=== PATIENT | female | born 1940 | race Caucasian/White ===

== ENCOUNTER 2016-10-29 16:58 | Outpatient (CLI) | payer MEDICARE, BC | END 2016-10-29 17:34 | LOC: D.MAMMO 16:58 | DX: N63 Unspecified lump in breast (principal) ==

== ENCOUNTER 2019-02-14 08:01 | Day surgery (SDC) | payer MEDICARE, BC ==
[~2019-02-14] VITALS: Ht 157.5 cm; Wt 41.7 kg
[~2019-02-14 08:01] MED LIST: ALBUTEROL SULF8.5 GM INH; ANORO ELLIPTA1 EACH INH; HYDROCODON-ACE1 EA10 PO; PRENAVITE1 TAB PO; ROPINIROLE HCL2 MG PO; TOVIAZ4 MG PO; TRELEGY ELLIPT1 EACH INH; TRINTELLIX5 MG PO
[2019-02-14 08:24] LABS: HEMATOCRIT 49.8 % (36.0-48.0); HEMOGLOBIN 16.6 g/dL (12-16); MCH 29.4 pg (26.0-34.0); MCHC 33.3 g/dL (31.0-37.0); MCV 88.1 fL (80.0-100.0); MEAN PLATELET VOLUME 9.6 fL (7.4-10.4); PLATELET COUNT 233 10x3/uL (130-400); RBC 5.65 10x6/uL (4.00-5.40); RDW 13.1 % (11.5-14.5); WBC 12.2 10x3/uL (4.8-10.8)
[2019-02-14 08:37] LABS: ANION GAP 7.5 mmol/L (8-16); CALCIUM 11.8 mg/dL (8.5-10.1); CARBON DIOXIDE 29.3 mmol/L (21.0-32.0); CREATININE - SERUM 0.9 mg/dL (0.6-1.3); POTASSIUM - SERUM 3.8 mmol/L (3.5-5.1)
[2019-02-14 08:57] LABS: LYMPHOCYTES 53 % (15-50); MONOCYTES 5 % (2-11); NEUTROPHILS 41 % (40-80); PLATELET ESTIMATE NORMAL
[2019-02-14 08:58] VITALS: BP 172/74; Ht 157.5 cm; Wt 41.7 kg
--- NOTE | 2019-02-14 09:11 | NUR ---
CALLED SHAFTING CLEANER FOR MH CONSULT. WILL COME WHEN PATIENT RETURNS FROM SURGERY.
[2019-02-14] MEDS ORDERED: PERCOCET 5-3251 TAB PO (10:19)
--- NOTE | 2019-02-14 11:46 | NUR ---
1125 SUPERVISIOR NOTIFIED OF PT'S RETURN TO 2507 FOR BEHAVIOR REFERRAL.
--- NOTE | 2019-02-14 12:04 | NUR ---
DR. GIBSON NOTIFIED AND REVIEWED PT'S BEHAVIOR AND ASSESSMENT RESULTS. PT IS A LOW RISK PER DR. GIBSON. DR. GIBSON STATED TO GIVE RESOURCES TO PT AT TIME OF DISCHARGE. NO FURTHER ORDERS AT THIS TIME. RESOURCES REVIEWED WITH PT AND SHE VERBALIZED UNDERSTANDING.
--- NOTE | 2019-02-14 14:18 | NUR ---
1335 DR. JOHNSON BEEPED DUE TO PT.'S CONTINUED ITCHING. Coral TownsendNAnahy 1350 DR[address] JOHNSON BEEPED AGAIN DUE TO PT.'S CONTINUED ITCHING. Coral HORTA R.N. 1400 DR. JOHNSON RETURNED CALL. REPORT OF ITCHING & PAIN. ORDERS RECEVIED FOR BENADRYL 25MG PO. PT GIVEN BENADRYL 25MG PO. CESAR Burrell
--- NOTE | 2019-02-14 15:33 | NUR ---
1420 REPORT RECEIVED FROM SAMUEL HORTA RN.
--- NOTE | 2019-03-02 13:49 | OP ---
PATIENT NAME: MELANIE DAMON MEDICAL RECORD: [id number] :44 LOCATION:D.OPS ADMISSION DATE: SURGEON: MAGUE JOHNSON MD DATE OF OPERATION: 02/14/2019 PREOPERATIVE DIAGNOSES: 1. Ventral hernia. 2. Chronic obstructive pulmonary disease. 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 POSTOPERATIVE DIAGNOSES: 1. Ventral hernia. 2. Chronic obstructive pulmonary disease. 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 PROCEDURES: 1. Diagnostic laparoscopy. 2. Ventral hernia repair. SURGEON: Mague Johnson MD REPORT OF PROCEDURE: The patient's abdomen was prepped and draped in sterile fashion. A Veress needle was inserted in the left upper quadrant and the abdomen was insufflated. A 5-mm Visiport trocar was inserted in the left lateral abdomen. Once inside, I could see the Veress needle and there was no sign of any injury to bowel or surrounding structures. Inspection of the abdomen showed there were some adhesions present in the midline of the mid abdomen, then extending up towards the epigastrium. This was mainly of omentum, but there appeared to be a little bit of bowel that was involved. As we moved towards the pelvis down past the umbilicus, there were no adhesions present, but there was a large deformity to the anterior abdominal wall. There was a piece of mesh that was present within the defect. The edges of the rectus muscles could be visualized and they were by approximately 7-8 cm. The mesh was present inside of these edges of the muscle and adherent to the undersurface of the subcutaneous fatty tissue of the skin of the lower abdomen. The patient was extremely thin and the sutures and edges of the mesh could be easily palpated externally. This appeared to be evidence of a large hernia, but due to how thin the patient was, it was difficult to make out many structures as they were so close to the skin themselves. The patient did have a hernia defect that was just to the right of the umbilicus. After we inspected the abdomen for a little while, the ports and insufflation were then removed. A transverse incision was made overlying the hernia defect just to the right of the umbilicus. Electrocautery was used to dissect through the subcutaneous tissues and down into the hernia sac. The hernia sac was freed up from the edges of the fascia and pushed back down into the abdominal cavity. The defect itself was about 1.5 cm in size transversely and about 1 cm long. We closed the fascial defect transversely using interrupted 0 Prolenes times 3. We irrigated out the wound and then infused a total of 10 mL of 0.25% Marcaine with epinephrine to all the tissues. The subcutaneous tissues were reapproximated with interrupted 3-0 Vicryl and the skin incisions were all closed with subcutaneous 5-0 Monocryl. COMPLICATIONS: None. CONDITION: Stable. OPERATIVE REPORT [id number] MELANIE DAMON ANESTHESIA: General endotracheal and local. BLOOD LOSS: Minimal. TRANSINT:[id number] Voice Confirmation ID: [id number] DOCUMENT ID: [id number] MAGUE JOHNSON MD at 1349 CC: GERSON BELL MD [id number] DICTATION DATE: 02/14/19 1024 SERVICE DESK MANAGER: 02/14/19 1122 [facility] 02/14/19 [address] [place] [address]
== END 2019-02-14 15:00 | disposition home or self-care (01) ==
LOC: D.OPS 08:01
PROVIDERS: ATTEND Surgery
DX: K43.9 Ventral hernia without obstruction or gangrene (principal); J44.9 Chronic obstructive pulmonary disease, unspecified; D68.1 Hereditary factor XI deficiency

== ENCOUNTER 2019-04-18 05:08 | Inpatient (IN) | payer MEDICARE, BC ==
[~2019-04-18] VITALS: Ht 157.5 cm; Wt 42.0 kg
[~2019-04-18 05:08] MED LIST changes: +PERCOCET 5-3251 TAB PO
[2019-04-18 06:10] LABS: HEMATOCRIT 50.5 % (36.0-48.0); HEMOGLOBIN 16.8 g/dL (12-16); MCH 29.5 pg (26.0-34.0); MCHC 33.3 g/dL (31.0-37.0); MCV 88.6 fL (80.0-100.0); MEAN PLATELET VOLUME 9.6 fL (7.4-10.4); RDW 13.5 % (11.5-14.5); WBC 14.4 10x3/uL (4.8-10.8)
[2019-04-18 06:20] LABS: PLATELET COUNT 280 10x3/uL (130-400)
[2019-04-18 06:39] LABS: CALCIUM 11.3 mg/dL (8.5-10.1); CARBON DIOXIDE 28.1 mmol/L (21.0-32.0); POTASSIUM - SERUM 4.1 mmol/L (3.5-5.1)
--- NOTE | 2019-04-18 07:01 | NUR ---
0655 REQUEST FOR BEHAVIORAL HEALTH [id number] CALLED IN TO [facility].
[2019-04-18 07:17] VITALS: BP 143/63; BMI 16.8
--- NOTE | 2019-04-18 07:29 | NUR ---
DR GIBSON NOTIFIED AND REVIEWED PATIENT'S BEHAVIOR AND ASSESSMENT RESULTS. PATIENT IS A LOW RISK. DR GIBSON STATED TO GIVE RESOURCES TO PATIENT. RESOURCES GIVEN AND REVIEWED WITH PATIENT AND SHE VERBALIZES UNDERSTANDING.
[2019-04-18 07:53] LABS: LYMPHOCYTES 63 % (15-50); MONOCYTES 8 % (2-11); NEUTROPHILS 29 % (40-80); PLATELET ESTIMATE NORMAL
--- NOTE | 2019-04-18 08:56 | NUR ---
0815 DR JOHNSON AT PTS BEDSIDE. AWARE THAT PT HAS REFUSED LOVENOX DUE TO A CLOTTING DEFICIT. DR JOHNSON MADE AWARE THAT PT HAS DRIVEN HERSELF TO [facility] AND HAS PLANS TO DRIVE HERSELF HOME AFTER DISCHARGE. DR JOHNSON TALKING TO PT REGARDING THIS MATTER. PT ASKING FOR PAIN MEDICATION. 0830 UNSUCCESSFUL IV ATTEMPTS X2 EARLIER. DR HU HERE AND AGREED TO START IV ON PT. 20G ANGIOCATH STARTED IN RIGHT HAND. 0845 PT ASKING FOR PAIN MEDICATION. STATES ABOMINAL PAIN IS A 10 OUT OF 10. WILL GIVE IV MORPHINE ORDERED. WILL BE RECORDED IN EMAR.
[2019-04-18 11:39] VITALS: BP 134/66
--- NOTE | 2019-04-18 11:52 | NUR ---
RECEIVED PATIENT FROM RECOVERY VIA BED ALERT AND ORIENTED. ACCOMPANIED BY STAFF. VITALS STABLE. C/O PAIN, GAVE NORCO 10 FOR PAIN, SCALE 8/10. NO S/S OF ACUTE DISTRESS NOTED. DENIES ANY NEEDS AT THIS TIME. CALL LIGHT IN REACH. WILL CONTINUE TO MONITOR.
--- NOTE | 2019-04-18 13:11 | NUR ---
I have reviewed this patient and I concur with the Shift Assessment completed by the Licensed Practical Nurse today this shift.
--- NOTE | 2019-04-18 13:36 | OP ---
PATIENT NAME: MELANIE DAMON MEDICAL RECORD: [id number] :44 LOCATION:D.MS [place].2222 ADMISSION DATE: SURGEON: MAGUE JOHNSON MD DATE OF OPERATION: 04/18/2019 PREOPERATIVE DIAGNOSES: 1. Recurrent ventral incisional hernia. 2. Chronic obstructive pulmonary disease. 3. Factor XI deficiency. POSTOPERATIVE DIAGNOSES: 1. Recurrent ventral incisional hernia. 2. Chronic obstructive pulmonary disease. 3. Factor XI deficiency. PROCEDURE: 1. Extraction of old mesh. 2. Ventral hernia repair with 13.7 x 17.[address] mesh. SURGEON: Mague Johnson MD REPORT OF PROCEDURE: The patient's abdomen was prepped and draped in sterile fashion. A cutdown was made in the lower midline. Electrocautery was used to dissect through the subcutaneous tissues. The patient's previous hernia mesh was lying just underneath the fatty tissue and we went ahead and elevated the fatty tissue off of this until we got all the way around the mesh. The mesh appeared to be adherent to the medial aspects of the patient's midline fascia. The mesh was completely excised and we are in the abdominal cavity at this point. Once inside the abdomen, we freed up some adhesions that were present of the omentum to the anterior abdominal wall. We measured out the hernia defect and it was a little over 12 cm in length. We freed up the fascial edges and cleaned up any weak appearing tissue. The muscle itself appeared to be viable and we elected to perform an underlay mesh repair. The Ventralex ST mesh was inserted in an underlay fashion and sutured down on all sides using multiple interrupted 0 Prolenes. The mesh appeared to rest in good position with no tension. We irrigated out the wound and assured there was no sign of any bleeding. The fascia was then closed in the midline overlying the mesh using running 0 Vicryls. We then irrigated out the wound one last time. The subcutaneous tissues were reapproximated with interrupted 3-0 Vicryl and the patient's umbilicus was tacked back down to the fascia using a single interrupted 3-0 Vicryl. The skin incision was then closed with wyatt and dressed appropriately. COMPLICATIONS: None. CONDITION: Stable. ANESTHESIA: General endotracheal and local. BLOOD LOSS: Minimal. TRANSINT:[id number] Voice Confirmation ID: [id number] DOCUMENT ID: [id number] OPERATIVE REPORT [id number] MELANIE DAMON CHRISTIAN MD at 1336 CC: [id number] DICTATION DATE: 04/18/19 1103 DRY CELL SEALER: 04/18/19 1122 [facility] [address] [id number]
[2019-04-18 14:15] VITALS: BP 134/66; BMI 16.9
[2019-04-18 16:43] VITALS: BP 116/47
--- NOTE | 2019-04-18 17:56 | NUR ---
ALERT AND ORIENTED, SITTING UP IN BED EATING SUPPER. NO C/O PAIN. NO S/S OF ACUTE DISTRESS NOTED. DENIES ANY NEEDS AT THIS TIME. CALL LIGHT IN REACH. WILL CONTINUE TO MONITOR.
--- NOTE | 2019-04-18 20:00 | NUR ---
ASSESSMENT PER FLOWSHEET. SALINE LOCK TO RT HAND.INCISION TO ABDOMEN C/D/I. UP WITH HELP TO BSC VOIDS FREELY ASSISTED BACK TO BED.
--- NOTE | 2019-04-18 20:32 | NUR ---
I have reviewed this patient and I concur with the Shift Assessment completed by the Licensed Practical Nurse today this shift.
[2019-04-18 20:45] VITALS: BP 149/71
--- NOTE | 2019-04-18 21:18 | NUR ---
C/O PAIN INCISIONAL AREA NORCO 10 TAB ONE PO GIVEN FOR PAIN CONTROL.
--- NOTE | 2019-04-19 | NUR ---
UP TO BR VOIDS ASSISTED BACK TO BED SR UP X2 CALL LIGHT WITHIN REACH.
[2019-04-19 01:21] VITALS: BP 111/52
--- NOTE | 2019-04-19 02:12 | NUR ---
C/O PAIN INCISIONAL AREA RATES PAIN #10. MORPHINE 2 MG IVP GIVEN FOR PAIN CONTROL.
--- NOTE | 2019-04-19 03:22 | NUR ---
EYES CLOSED RESPIRATIONS WITH EASE AND UNLABORED.
[2019-04-19 04:57] LABS: ANION GAP 6.6 mmol/L (8-16); CALCIUM 10.4 mg/dL (8.5-10.1); CARBON DIOXIDE 30.7 mmol/L (21.0-32.0); CREATININE - SERUM 1.1 mg/dL (0.6-1.3); POTASSIUM - SERUM 4.3 mmol/L (3.5-5.1)
[2019-04-19 05:06] VITALS: BP 140/61
[2019-04-19 05:18] LABS: BASOPHILS 0.1 % (0-2); HEMATOCRIT 41.9 % (36.0-48.0); HEMOGLOBIN 13.5 g/dL (12-16); IMMATURE GRANULOCYTES 0.3 % (0-5); LYMPHOCYTES 57.2 % (15-50); MCH 29.2 pg (26.0-34.0); MCHC 32.2 g/dL (31.0-37.0); MEAN PLATELET VOLUME 9.1 fL (7.4-10.4); MONOCYTES 4.7 % (2-11); NEUTROPHILS 36.7 % (40-80); PLATELET COUNT 239 10x3/uL (130-400); RBC 4.62 10x6/uL (4.00-5.40); RDW 13.6 % (11.5-14.5); WBC 11.4 10x3/uL (4.8-10.8)
[2019-04-19 05:30] LABS: MCV 90.7 fL (80.0-100.0)
[2019-04-19 08:20] VITALS: BP 123/57
--- NOTE | 2019-04-19 10:08 | NUR ---
PATIENT IS POST OP DAY 1 FOLLOWING VENTRAL HERNIA REPAIR. DRESSING TO MIDLINE INTACT. PAIN RELIEVED AT THIS TIME FOLLOWING MORPHINE AND LATER PERCOCET GIVEN. PATIENT TOLERATING REGULAR DIET WELL
[2019-04-19 13:41] VITALS: BP 133/73
[2019-04-19 17:14] VITALS: BP 132/73
[2019-04-19 19:30] VITALS: BP 110/40
--- NOTE | 2019-04-19 20:00 | NUR ---
UP AMBULATING IN HALLWAY, BACK TO ROOM AND TO BED, REQUESTING PAIN MEDICATION, PEROCET GIVEN ORDERED, SEE SHIFT ASSESSMENT, MIDLINE ABD DRESSING DRY AND INTACT WITH ABD BINDER IN USE, CALL LIGHT IN REACH ENCOURAGED TO CALL BEFORE GETTING UP
[2019-04-20 00:30] VITALS: BP 108/42
[2019-04-20 05:00] VITALS: BP 105/46
[2019-04-20] MEDS ORDERED: PERCOCET 10-321 EAC1 PO (07:52)
[2019-04-20] MEDS ORDERED: CYCLOBENZAPRINE10 MG PO (07:52)
--- NOTE | 2019-04-20 08:00 | NUR ---
Spoke with Dr. Augustin about increased heart rate and decreased blood pressure. Also informed patient was on 5 liters NC oxygen. She does not have any lab work ordered for this am. He states she is being discharged and that she has oxygen at home. No new orders at this time. Also discussed with patient's bedside nurse, Richa.
[2019-04-20 09:21] VITALS: BP 115/39
--- NOTE | 2019-04-20 12:20 | MORECARE ---
CASE MANAGEMENT DISCHARGE SUMMARY PATIENT: MELANIE DAMON UNIT: [id number] ADM DATE: 04/19/19 AGE: 78 : 42 SEX: F ROOM/BED: D.2222 AUTHOR: RASHIDA MITCHELL PHYSICIAN: REFERRING PHYSICIAN: MAGUE JOHNSON MD DATE OF SERVICE: 04/20/19 Discharge Plan Patient Name: MELANIE DAMON Facility: [facility]:[place] : 1940 Planned Disposition: Home Anticipated Discharge Date: 04/21/19 Discharge Date: Expected LOS: 2 Initial Reviewer: [email or web address] Initial Review Date: 04/20/2019 Generated: 04/20/19 1:19 pm DCPIA - Discharge Planning Initial Assessment Updated by [email or web address]: Dalila Carreon on 04/20/19 12:19 pm * Is the patient Alert and Oriented? Yes * How many steps to enter\exit or inside your home? Ramp/0 * PCP Dr. Goodman in [place] * Pharmacy [facility] * Preadmission Environment Home Alone * ADLs Independent * Equipment Nebulizer Other Oxygen Walker * Other Equipment Portable oxygen Trilogy * List name and contact numbers for known caregivers / representatives who currently or will assist patient after discharge: Beth Vital - [phone] * Verbal permission to speak to the caregivers and representatives has been obtained from the patient. Yes * Community resources currently utilized None * Additional services required to return to the preadmission environment? No * Can the patient safely return to the preadmission environment? Yes * Has this patient been hospitalized within the prior 30 days at any hospital? No Coverage Notice Reviewer: [id number] Twyla Vora Notice Issued Date-Time: 04/19/2019 19:10 Notice Type: Medicare Outpatient Observation Notice Notice Delivered To: Patient Relationship to Patient: Self Hydrate Control Tender Name: Melanie Reed Delivery Method: HAND - Hand Delivered Days: Prior Verbal Notification: Recipient Understood Notice: Recipient Signature: Yes Med Rec Note Co-signed by Attending: Coverage Notice Comment: THRASHER delivered to and signed by patient. Original given to patient and placed on chart. Patient Name: MELANIE DAMON Page [phone] at 1220 All edits/amendments must be made on the electronic document DICTATION DATE: 04/20/191218 RN NEONATAL: KAY 04/20/191218 RPT#: [id number] DC DATE: STATUS: ADM IN [facility] [address] [place] [address] END OF REPORT
--- NOTE | 2019-04-20 12:27 | MORECARE ---
CASE MANAGEMENT DISCHARGE SUMMARY PATIENT: MELANIE DAMON UNIT: [id number] ADM DATE: 04/19/19 AGE: 78 : 42 SEX: F ROOM/BED: D.2222 AUTHOR: RASHIDA MITCHELL PHYSICIAN: REFERRING PHYSICIAN: MAGUE JOHNSON MD DATE OF SERVICE: 04/20/19 Discharge Plan Patient Name: MELANIE DAMON Facility: [facility]:[place] : 1940 Planned Disposition: Home Anticipated Discharge Date: 04/21/19 Discharge Date: Expected LOS: 2 Initial Reviewer: [email or web address] Initial Review Date: 04/20/2019 Generated: 04/20/19 1:27 pm Comments DCP- Discharge Planning Updated by [email or web address]: Dalila Carreon on 04/20/19 11:[address] Patient Name: MELANIE DAMON Admission Status: Elective Accout number: [id number] Admission Date: 04-19-2019 : 1940 Admission Diagnosis: Attending: MAGUE JOHNSON Current LOS: 1 Anticipated DC Date: 04-21-2019 Planned Disposition: Home Primary Insurance: MEDICARE A & B Discharge Planning Comments: CM met with patient to complete initial dc planning assessment. CM educated patient on the CM role and verbal consent given by patient to complete assessment. Patient lives at home alone. At discharge patient plans to return and feels this is a safe discharge. CM discussed availability of home health, rehab services, and medical equipment. Patient denied known discharge needs at this time. She states that she has her car in the parking lot and her portable oxygen and her nebulizer are in the car. She also states she cannot get ahold of her friends to pick her up today. RT has attempted to decrease her oxygen back to home flow of 2 liters without success and have had to increase it back to 4l NC for oxygen saturation of 90%. Richa has notified Dr. Cristina and he has held discharge for today. I have asked patient to arrange transportation for tomorrow. CM will continue to follow and will assist as needed with dc plans/needs. Corporate Security Officer: Dalila Carreon DCPIA - Discharge Planning Initial Assessment Updated by [email or web address]: Dalila Carreon on 04/20/19 12:19 pm * Is the patient Alert and Oriented? Yes * How many steps to enter\exit or inside your home? Ramp/0 * PCP Dr. Goodman in [place] * Pharmacy [facility] * Preadmission Environment Home Alone * ADLs Independent * Equipment Nebulizer Other Oxygen Walker * Other Equipment Portable oxygen Trilogy * List name and contact numbers for known caregivers / representatives who currently or will assist patient after discharge: Beth Vital [phone] * Verbal permission to speak to the caregivers and representatives has been obtained from the patient. Yes * Community resources currently utilized None * Additional services required to return to the preadmission environment? No * Can the patient safely return to the preadmission environment? Yes * Has this patient been hospitalized within the prior 30 days at any hospital? No Coverage Notice Reviewer: [id number] Twyla Vora Notice Issued Date-Time: 04/19/2019 19:10 Notice Type: Medicare Outpatient Observation Notice Notice Delivered To: Patient Relationship to Patient: Self Kosher Dietary Service Manager Name: Melanie Reed Delivery Method: HAND - Hand Delivered Days: Prior Verbal Notification: Recipient Understood Notice: Recipient Signature: Yes Med Rec Note Co-signed by Attending: Coverage Notice Comment: THRASHER delivered to and signed by patient. Original given to patient and placed on chart. Last DP export: 04/20/19 11:19 Patient Name: MELANIE DAMON Page [phone] at 1227 All edits/amendments must be made on the electronic document DICTATION DATE: 04/20/191226 FIBERGLASS ROVING WINDER: KAY 04/20/19 1227 RPT#: [id number] DC DATE: STATUS: ADM IN [facility] [address] [place] [address] END OF REPORT
[2019-04-20 12:54] VITALS: BP 109/40
[2019-04-20 14:11] VITALS: Ht 157.5 cm; Wt 42.0 kg
[2019-04-20 17:28] VITALS: BP 122/45
--- NOTE | 2019-04-20 17:54 | NUR ---
HAS BEEN UP TO CHAIR AND UP SOME TODAY.PT HAS BEEN INSTRUCTED SHE WILL DC HOME IN AM AND WILL NEED TRANSPORT HOME.SHE IS WITHOUT CHANGE.CONT PLAN OF CARE
[2019-04-20 20:00] VITALS: BP 120/51
--- NOTE | 2019-04-20 20:00 | NUR ---
PT SITTING UP IN BED WITHOUT DISTRESS, AOX4. IV RIGHT HAND SL. O2 4L/NC. ML INCISION TO ABD CDI. USING INCENTIVE SPIROMETER AT BEDSIDE. STATES SHE HAS NOT HAD BM YET. EDUCATED ON SENOKOT AND MILK OF MAG. STATES SHE HAS FRIENDS DRIVING IN FROM [place] IN AM TO TAKE HER BACK TO [place] UPON DISCHARGE. DENIES CURRENT NEEDS. CL IN REACH, WILL CTM
[2019-04-21] VITALS: BP 115/44
--- NOTE | 2019-04-21 00:10 | NUR ---
PT STATES PAIN IN ABD 10/10, REQUESTED AND GIVEN PERCOCET. DENIES OTHER NEEDS, CL IN REACH, WILL CTM
[2019-04-21 04:00] VITALS: BP 125/63
[2019-04-21 04:49] LABS: BASOPHILS 0.1 % (0-2); EOSINOPHILS 1.9 % (0-7); HEMATOCRIT 37.3 % (36.0-48.0); IMMATURE GRANULOCYTES 0.3 % (0-5); LYMPHOCYTES 50.8 % (15-50); MCHC 32.2 g/dL (31.0-37.0); MCV 90.1 fL (80.0-100.0); MEAN PLATELET VOLUME 9.2 fL (7.4-10.4); MONOCYTES 6.3 % (2-11); NEUTROPHILS 40.6 % (40-80); PLATELET COUNT 196 10x3/uL (130-400); RBC 4.14 10x6/uL (4.00-5.40); RDW 13.4 % (11.5-14.5); WBC 10.9 10x3/uL (4.8-10.8)
[2019-04-21 05:25] LABS: ANION GAP 6.1 mmol/L (8-16); CALCIUM 10.6 mg/dL (8.5-10.1); CARBON DIOXIDE 32.2 mmol/L (21.0-32.0); CREATININE - SERUM 1.1 mg/dL (0.6-1.3); POTASSIUM - SERUM 4.3 mmol/L (3.5-5.1)
--- NOTE | 2019-04-21 07:14 | NUR ---
LYING IN BED,WITHOUT SIGNS OF DISTRESS.REQUESTING PAIN PILL WHEN TIME. PT STATES RIDE COMING FROM [place] FOR TRANSPORT HOME TODAY.CALL LIGHT IN REACH
[2019-04-21 08:02] VITALS: BP 132/61
--- NOTE | 2019-04-23 14:06 | MORECARE ---
CASE MANAGEMENT DISCHARGE SUMMARY PATIENT: MELANIE DAMON UNIT: [id number] ADM DATE: 04/19/19 AGE: 78 : 42 SEX: F ROOM/BED: D.2222 AUTHOR: RASHIDA MITCHELL PHYSICIAN: REFERRING PHYSICIAN: MAGUE JOHNSON MD DATE OF SERVICE: 04/23/19 Discharge Plan Patient Name: MELANIE DAMON Facility: [facility]:[place] : 1940 Planned Disposition: Home Anticipated Discharge Date: 04/21/19 Discharge Date: 04/21/2019 Expected LOS: 2 Initial Reviewer: [email or web address] Initial Review Date: 04/20/2019 Generated: 04/23/19 3:06 pm Comments DCP- Discharge Planning Updated by [email or web address]: Dalila Carreon on 04/20/19 11:[address] Patient Name: MELANIE DAMON Admission Status: Elective Accout number: [id number] Admission Date: 04-19-2019 : 1940 Admission Diagnosis: Attending: MAGUE JOHNSON Current LOS: 1 Anticipated DC Date: 04-21-2019 Planned Disposition: Home Primary Insurance: MEDICARE A & B Discharge Planning Comments: CM met with patient to complete initial dc planning assessment. CM educated patient on the CM role and verbal consent given by patient to complete assessment. Patient lives at home alone. At discharge patient plans to return and feels this is a safe discharge. CM discussed availability of home health, rehab services, and medical equipment. Patient denied known discharge needs at this time. She states that she has her car in the parking lot and her portable oxygen and her nebulizer are in the car. She also states she cannot get ahold of her friends to pick her up today. RT has attempted to decrease her oxygen back to home flow of 2 liters without success and have had to increase it back to 4l NC for oxygen saturation of 90%. Richa has notified Dr. Cristina and he has held discharge for today. I have asked patient to arrange transportation for tomorrow. CM will continue to follow and will assist as needed with dc plans/needs. Sciences Dean: Dalila Carreon DCPIA - Discharge Planning Initial Assessment Updated by [id number]: Dalila Carreon on 04/20/19 12:19 pm * Is the patient Alert and Oriented? Yes * How many steps to enter\exit or inside your home? Ramp/0 * PCP Dr. Goodman in [place] * Pharmacy [facility] * Preadmission Environment Home Alone * ADLs Independent * Equipment Nebulizer Other Oxygen Walker * Other Equipment Portable oxygen Trilogy * List name and contact numbers for known caregivers / representatives who currently or will assist patient after discharge: Beth Vital - [phone] * Verbal permission to speak to the caregivers and representatives has been obtained from the patient. Yes * Community resources currently utilized None * Additional services required to return to the preadmission environment? No * Can the patient safely return to the preadmission environment? Yes * Has this patient been hospitalized within the prior 30 days at any hospital? No Coverage Notice Reviewer: [id number] Twyla Vora Notice Issued Date-Time: 04/19/2019 19:10 Notice Type: Medicare Outpatient Observation Notice Notice Delivered To: Patient Relationship to Patient: Self Skin Installer Name: Melanie Reed Delivery Method: HAND - Hand Delivered Days: Prior Verbal Notification: Recipient Understood Notice: Recipient Signature: Yes Med Rec Note Co-signed by Attending: Coverage Notice Comment: THRASHER delivered to and signed by patient. Original given to patient and placed on chart. Last DP export: 04/20/19 11:27 Patient Name: MELANIE DAMON Page [phone] at 1406 All edits/amendments must be made on the electronic document DICTATION DATE: 04/23/19 1406 PLISSE MACHINE OPERATOR HELPER: KAY 04/23/19 1406 RPT#: [id number] DC DATE:04/21/19 STATUS: DIS IN [facility] [address] [place] [address] END OF REPORT
== END 2019-04-21 11:04 | disposition home or self-care (01) | DRG 354 ==
LOC: D.OPS 05:08 → D.MS 05:08 → D.OPS 08:45 → D.PAN 08:45 → D.MS 11:11 → D.OPS 04-19 19:14 → D.MS 04-19 19:15
PROVIDERS: Surgery; ADMIT Surgery; ATTEND Surgery
PROC: 0WUF0JZ Supplement Abdominal Wall with Synthetic Substitute, Open Approach (ICD-10-PCS; principal; 2019-04-18 08:45)
DX: K43.2 Incisional hernia without obstruction or gangrene (principal); D68.1 Hereditary factor XI deficiency; J44.9 Chronic obstructive pulmonary disease, unspecified

== ENCOUNTER 2019-04-22 19:42 | Inpatient (IN) | payer MEDICARE, BC ==
[~2019-04-22] VITALS: Ht 157.5 cm; Wt 41.7 kg
[~2019-04-22 19:42] MED LIST changes: +CYCLOBENZAPRINE10 MG PO; +PERCOCET 10-321 EAC1 PO
--- NOTE | 2019-04-22 20:20 | NUR ---
PT ASSISTED TO BEDSIDE COMMODE. URINE SPECIMEN SENT TO LAB.
[2019-04-22 20:29] LABS: BASOPHILS 0.1 % (0-2); EOSINOPHILS 0 % (0-7); HEMATOCRIT 38.8 % (36.0-48.0); HEMOGLOBIN 12.4 g/dL (12-16); IMMATURE GRANULOCYTES 0.2 % (0-5); MCH 29.2 pg (26.0-34.0); MCV 91.3 fL (80.0-100.0); MEAN PLATELET VOLUME 9.2 fL (7.4-10.4); MONOCYTES 0.8 % (2-11); NEUTROPHILS 87.9 % (40-80); RBC 4.25 10x6/uL (4.00-5.40); RDW 13.7 % (11.5-14.5)
[2019-04-22 20:30] LABS: PLATELET COUNT 250 10x3/uL (130-400)
--- NOTE | 2019-04-22 20:30 | NUR ---
DRESSING REMOVED BY EDP. NEW DRESSING APPLIED TO SITE.
[2019-04-22 20:32] LABS: APPEARANCE CLEAR (CLEAR); BILIRUBIN NEGATIVE (NEGATIVE); COLOR YELLOW (YELLOW); GLUCOSE NEGATIVE (NEGATIVE); KETONE MODERATE mg/dL (NEGATIVE); NITRITE NEGATIVE (NEGATIVE); PROTEIN TRACE mg/dL (NEGATIVE); UROBILINOGEN NORMAL (NORMAL)
[2019-04-22 20:34] LABS: BACTERIA FEW /hpf (NEGATIVE); EPITHELIAL CELLS 0-5 /hpf (0-5); RED CELLS - URINE 0-5 /hpf (0-5); WHITE CELLS - URINE 0-5 /hpf (NEGATIVE)
[2019-04-22 20:39] LABS: ANION GAP 12.5 mmol/L (8-16); CALCIUM 10.8 mg/dL (8.5-10.1); CARBON DIOXIDE 26.2 mmol/L (21.0-32.0); CREATININE - SERUM 0.9 mg/dL (0.6-1.3); POTASSIUM - SERUM 4.7 mmol/L (3.5-5.1)
[2019-04-22 20:47] LABS: ALBUMIN 2.8 g/dL (3.4-5.0); BILIRUBIN - TOTAL 0.57 mg/dL (0.2-1.3)
--- NOTE | 2019-04-22 21:35 | NUR ---
LEVAQUIN INFUSING. PT PROVIDED SANDWICH BOX PER REQUEST.
--- NOTE | 2019-04-22 22:13 | NUR ---
PT ARRIVED ON UNIT VIA WHEELCHAIR ESCORTED BY ER NURSE. POSITIONED PT IN BED; ACTIVATED BED ALARM; AND ORIENTED TO ROOM AND CALL LIGHT. IV LEVAQUIN FINISHING NOW.
--- NOTE | 2019-04-22 22:30 | NUR ---
GAVE DEMERAL 50 MG IVP PER REQUEST FOR SEVERE PAIN AT LEVEL 9/10. WILL MONITOR FOR EFFECTIVENESS.
[2019-04-22 22:43] VITALS: BP 120/41; BMI 16.8
--- NOTE | 2019-04-22 23:29 | NUR ---
DR GIBSON NOTIFIED AND REVIEWED PT'S BEHAVIOR AND ASSESSMENT RESULTS. PT IS A LOW RISK PER DR GIBSON. DR GIBSON STATED TO GIVE RESOURCES TO PT AT TIME OF DISCHARGE. NO FURTHER ORDERS AT THIS TIME. RESOURCES REVIEWED WITH PT AND SHE VERBALIZED UNDERSTANDING,
[2019-04-23 00:21] VITALS: BP 120/48
--- NOTE | 2019-04-23 00:22 | NUR ---
ADMISSION ASSESSMENT AND HISTORY COMPLETE. MED REC REVIEWED.
[2019-04-23 04:00] VITALS: BP 118/46
--- NOTE | 2019-04-23 07:32 | NUR ---
ALERT AND ORIENTED. LUNGS DIMINISHED BILATERALLY. HEART SOUNDS S1 AND S2 HEARD IN ALL HECK. BOWEL SOUNDS HYPOACTIVE X 4. MEPILEX TO MIDLINE ABD INCISION C/D/I. BRUISING TO ABDOMEN AND BACK. IV TO RFA PATENT WITHOUT REDNESS. O2 IN PLACE VIA NC AT 4L. DENIES NEEDS. BED LOW. FALLPRECAUTIONS IN PLACE. CALL ALVAREZ AND PERSONAL ITEMS IN REACH. WILL CONTINUE TO MONITOR.
[2019-04-23 07:43] VITALS: BP 127/55
--- NOTE | 2019-04-23 10:14 | NUR ---
SITTING IN BED. DRINKING MAG CITRATE. DENIES NEEDS. WILL CONTINUE TO MONITOR.
--- NOTE | 2019-04-23 12:01 | NUR ---
ASSISTED PATIENT TO CHANGE GOWNS AFTER COVERSTITCH MACHINE OPERATOR GAVE BATH. PATIENT GIVEN TOOTHBRUSH AND MOUTHWASH AND HAIRBRUSH PER REQUEST. DENIES FURTHER NEEDS. WILL CONTINUE TO MONITOR.
[2019-04-23 12:47] LABS: BASOPHILS 0.1 % (0-2); EOSINOPHILS 0 % (0-7); HEMATOCRIT 36.8 % (36.0-48.0); HEMOGLOBIN 11.7 g/dL (12-16); IMMATURE GRANULOCYTES 0.3 % (0-5); LYMPHOCYTES 13.7 % (15-50); MCH 29.1 pg (26.0-34.0); MCHC 31.8 g/dL (31.0-37.0); MCV 91.5 fL (80.0-100.0); MEAN PLATELET VOLUME 9.2 fL (7.4-10.4); MONOCYTES 6.1 % (2-11); NEUTROPHILS 79.8 % (40-80); PLATELET COUNT 283 10x3/uL (130-400); RBC 4.02 10x6/uL (4.00-5.40); RDW 13.5 % (11.5-14.5)
[2019-04-23 12:48] VITALS: BP 127/50
[2019-04-23 12:49] LABS: WBC 14.3 10x3/uL (4.8-10.8)
[2019-04-23 13:01] LABS: ALBUMIN 2.8 g/dL (3.4-5.0); ANION GAP 11.8 mmol/L (8-16); BILIRUBIN - TOTAL 0.38 mg/dL (0.2-1.3); CALCIUM 10.9 mg/dL (8.5-10.1); CARBON DIOXIDE 22.1 mmol/L (21.0-32.0); POTASSIUM - SERUM 4.9 mmol/L (3.5-5.1); PROTEIN - SERUM 6.8 g/dL (6.4-8.2)
[2019-04-23 13:03] LABS: CREATININE - SERUM 1.2 mg/dL (0.6-1.3)
--- NOTE | 2019-04-23 13:15 | NUR ---
ASSISTED TO BSC. CALL LIGHT IN REACH. INSTRUCTED TO CALL FOR HELP WHEN DONE. VERBALIZED UNDERSTANDING.
--- NOTE | 2019-04-23 15:15 | NUR ---
TELEMETRY PLACED ON PATIENT PER ORDER. SMALL BOWEL MOVEMENT NOTED TO BSC.
--- NOTE | 2019-04-23 16:46 | NUR ---
RESTING IN BED. DENIES NEEDS. WILL CONTINUE TO MONITOR.
[2019-04-23 16:47] VITALS: BP 118/56
--- NOTE | 2019-04-23 18:04 | NUR ---
RESTING IN BED. DENIES NEEDS. BED LOW. FALL PRECAUTIONS IN PLACE. CALL ALVAREZ AND PERSONAL ITEMS IN REACH.
[2019-04-23 20:11] VITALS: BP 134/66
[2019-04-24 00:15] VITALS: BP 108/65
--- NOTE | 2019-04-24 02:02 | NUR ---
NO S/S OF DISTRESS CALL LIGHT IN REACH, NO VPICED NEEDS OR WANTS TO STAFF. RESP. EVEN NAD UNLABORED CALL LIGHT IN REACH.
[2019-04-24 04:31] VITALS: BP 103/50
[2019-04-24 05:59] LABS: BASOPHILS 0 % (0-2); EOSINOPHILS 0 % (0-7); HEMATOCRIT 37.5 % (36.0-48.0); HEMOGLOBIN 11.5 g/dL (12-16); IMMATURE GRANULOCYTES 0.2 % (0-5); LYMPHOCYTES 8.1 % (15-50); MCH 28.5 pg (26.0-34.0); MCHC 30.7 g/dL (31.0-37.0); MCV 93.1 fL (80.0-100.0); MEAN PLATELET VOLUME 9.6 fL (7.4-10.4); MONOCYTES 2.5 % (2-11); NEUTROPHILS 89.2 % (40-80); PLATELET COUNT 333 10x3/uL (130-400); RBC 4.03 10x6/uL (4.00-5.40); RDW 13.7 % (11.5-14.5); WBC 13.8 10x3/uL (4.8-10.8)
[2019-04-24 06:21] LABS: ALBUMIN 2.9 g/dL (3.4-5.0); BILIRUBIN - TOTAL 0.39 mg/dL (0.2-1.3); CREATININE - SERUM 1.2 mg/dL (0.6-1.3); POTASSIUM - SERUM 5.3 mmol/L (3.5-5.1); PROTEIN - SERUM 6.2 g/dL (6.4-8.2)
[2019-04-24 06:25] LABS: ANION GAP 8.8 mmol/L (8-16); CARBON DIOXIDE 31.5 mmol/L (21.0-32.0)
[2019-04-24 07:28] VITALS: BP 135/64
--- NOTE | 2019-04-24 07:42 | NUR ---
ALERT AND ORIENTED. LUNGS DIMINISHED BILATERALLY. O2 IN PLACE AT 4L NC. HEART SOUNDS S1 AND S2 HEARD IN ALL HECK. BOWEL SOUNDS HYPOACTIVE X 4. BRUISING COVERING ABDOMEN AND FLANKS. BORDER GAUZE TO MIDLINE ABD INCISION C/D/I. TELEMETRY IN PLACE SHOWING 67 NORMAL SINUS ON MONITOR. DENIES NEEDS. BED LOW. FALL PRECAUTIONS IN PLACE. CALL ALVAREZ AND PERSONAL ITEMS IN REACH. WILL CONTINUE TO MONITOR.
[2019-04-24 11:02] VITALS: Ht 157.5 cm; Wt 41.7 kg
[2019-04-24 11:48] VITALS: BP 125/65
--- NOTE | 2019-04-24 12:59 | NUR ---
PATIENT STILL WITH NO BM.
--- NOTE | 2019-04-24 14:02 | MORECARE ---
CASE MANAGEMENT DISCHARGE SUMMARY PATIENT: MELANIE DAMON UNIT: [id number] ADM DATE: 04/22/19 AGE: 78 : 42 SEX: F ROOM/BED: D.[facility]3 AUTHOR: STEPHENDOC PHYSICIAN: REFERRING PHYSICIAN: GLENNY MERIDA MD DATE OF SERVICE: 04/24/19 Discharge Plan Patient Name: MELANIE DAMON Facility: [facility]:[place] : 1940 Planned Disposition: Inpatient Rehab Anticipated Discharge Date: Discharge Date: Expected LOS: Initial Reviewer: [email or web address] Initial Review Date: 04/22/2019 Generated: 04/24/19 3:02 pm DCPIA - Discharge Planning Initial Assessment Updated by [email or web address]: Kristy Casey on 04/24/19 1:56 pm * Is the patient Alert and Oriented? Yes * How many steps to enter\exit or inside your home? RAMP/0 * PCP DR BELL * Pharmacy [facility] * Preadmission Environment Home Alone * ADLs Partial Dependent * Partial ADLs (Assistance needed) Ambulation * Equipment Nebulizer Other Oxygen Walker * Other Equipment TRILOGY * List name and contact numbers for known caregivers / representatives who currently or will assist patient after discharge: FERNANDO ONEIL [phone] * Additional services required to return to the preadmission environment? Yes * Can the patient safely return to the preadmission environment? No * Has this patient been hospitalized within the prior 30 days at any hospital? Yes Coverage Notice Reviewer: [id number] Twyla Casey Notice Issued Date-Time: 04/24/2019 13:45 Notice Type: IM Discharge Notice Notice Delivered To: Patient Relationship to Patient: Certified Novell Administrator Name: Delivery Method: HAND - Hand Delivered Days: Prior Verbal Notification: Recipient Understood Notice: Yes Recipient Signature: Yes Med Rec Note Co-signed by Attending: Coverage Notice Comment: Reviewer: [id number] Twyla Casey Notice Issued Date-Time: 04/24/2019 13:45 Notice Type: Patient Choice Letter Notice Delivered To: Patient Relationship to Patient: Certified Novell Administrator Name: Delivery Method: HAND - Hand Delivered Days: Prior Verbal Notification: Recipient Understood Notice: Yes Recipient Signature: Yes Med Rec Note Co-signed by Attending: Coverage Notice Comment: [facility] Patient Name: MELANIE DAMON Page [phone] at 1402 All edits/amendments must be made on the electronic document DICTATION DATE: 04/24/19 140 SALES PORTER: KAY 04/24/191401 RPT#: [id number] DC DATE: STATUS: ADM IN [facility] [address] [place] [address] END OF REPORT
--- NOTE | 2019-04-24 14:11 | MORECARE ---
CASE MANAGEMENT DISCHARGE SUMMARY PATIENT: MELANIE DAMON UNIT: [id number] ADM DATE: 04/22/19 AGE: 78 : 42 SEX: F ROOM/BED: D.2203 AUTHOR: STEPHENDOC PHYSICIAN: REFERRING PHYSICIAN: GLENNY MERIDA MD DATE OF SERVICE: 04/24/19 Discharge Plan Patient Name: MELANIE DAMON Facility: [facility]:[place] : 1940 Planned Disposition: Inpatient Rehab Anticipated Discharge Date: Discharge Date: Expected LOS: Initial Reviewer: [id number] Initial Review Date: 04/22/2019 Generated: 04/24/19 3:11 pm Comments DCP- Discharge Planning Updated by [email or web address]: Kristy Casey on 04/24/19 1:[address] Patient Name: MELANIE DAMON Admission Status: ER Accout number: [id number] Admission Date: 04-22-2019 : 1940 Admission Diagnosis: Attending: GLENNY DIAZ Current LOS: 2 Anticipated DC Date: Planned Disposition: Inpatient Rehab Primary Insurance: MEDICARE A & B Discharge Planning Comments: CM met with patient to complete initial dc planning assessment. CM educated patient on the CM role and verbal consent given by patient to complete assessment. Patient lives at home by herself where she is independent with her care. At discharge patient would like to go to inpatient rehab at [facility] and feels this is a safe discharge. CM discussed availability of home health, rehab services, and medical equipment. She has home o2, with portibility walker, nebulizer, and trilolgy. I have sent the referral to Camilla at [facility]. FEDERICO obtained and IMM served and explained. Patient denied known discharge needs at this time. CM will continue to follow and will assist as needed with dc plans/needs. Forest Fire Prevention Manager: Kristy Casey DCPIA - Discharge Planning Initial Assessment Updated by [email or web address]: Kristy Casey on 04/24/19 1:56 pm * Is the patient Alert and Oriented? Yes * How many steps to enter\exit or inside your home? RAMP/0 * PCP DR BELL * Pharmacy [facility] * Preadmission Environment Home Alone * ADLs Partial Dependent * Partial ADLs (Assistance needed) Ambulation * Equipment Nebulizer Other Oxygen Walker * Other Equipment TRILOGY * List name and contact numbers for known caregivers / representatives who currently or will assist patient after discharge: FERNANDO ONEIL [phone] * Additional services required to return to the preadmission environment? Yes * Can the patient safely return to the preadmission environment? No * Has this patient been hospitalized within the prior 30 days at any hospital? Yes Coverage Notice Reviewer: [id number] Casey Notice Issued Date-Time: 04/24/2019 13:45 Notice Type: IM Discharge Notice Notice Delivered To: Patient Relationship to Patient: Merchandising Professor Name: Delivery Method: HAND - Hand Delivered Days: Prior Verbal Notification: Recipient Understood Notice: Yes Recipient Signature: Yes Med Rec Note Co-signed by Attending: Coverage Notice Comment: Reviewer: FRANCESCO Casey Notice Issued Date-Time: 04/24/2019 13:45 Notice Type: Patient Choice Letter Notice Delivered To: Patient Relationship to Patient: Merchandising Professor Name: Delivery Method: HAND - Hand Delivered Days: Prior Verbal Notification: Recipient Understood Notice: Yes Recipient Signature: Yes Med Rec Note Co-signed by Attending: Coverage Notice Comment: [facility] Last DP export: 04/24/19 1:02 Patient Name: MELANIE DAMON Page [phone] at 1411 All edits/amendments must be made on the electronic document DICTATION DATE: 04/24/19 1411 RADIOCHEMICAL TECHNICIAN: KAY 04/24/19 141 RPT#: [id number] DC DATE: STATUS: ADM IN [facility] [address] [place] [address] END OF REPORT
--- NOTE | 2019-04-24 14:28 | NUR ---
PATIENT STATES PASSING GAS. ATTEMPTED TO GET PT OOB. STATES DOES NOT FEEL LIKE WALKING NOW BUT WILL ATTEMPT LATER.
--- NOTE | 2019-04-24 16:09 | NUR ---
OT NOTE: PT COMPLETED TOILETING WITH CGA. PT COMPLETED TOILETING HYGIENE WITH CGA. PT COMPLETED BED MOB AND ADL MOB WITH CGA. DEE ALFARO COTA
--- NOTE | 2019-04-24 20:00 | NUR ---
ALERT RESTING IN BED, REQUESTING PAIN MEDICATION SOON CAN HAVE STATES HURTS ALL OVER, SEE SHIFT ASSESSMENT, CALL LIGHT IN REACH
[2019-04-24 20:54] VITALS: BP 136/64
[2019-04-25 01:10] VITALS: BP 137/76
[2019-04-25 05:11] VITALS: BP 145/87
[2019-04-25 06:26] LABS: BASOPHILS 0 % (0-2); EOSINOPHILS 0 % (0-7); HEMOGLOBIN 11.4 g/dL (12-16); IMMATURE GRANULOCYTES 0.3 % (0-5); LYMPHOCYTES 11.1 % (15-50); MCH 28.5 pg (26.0-34.0); MCHC 30.8 g/dL (31.0-37.0); MCV 92.5 fL (80.0-100.0); MEAN PLATELET VOLUME 9.2 fL (7.4-10.4); MONOCYTES 4.1 % (2-11); NEUTROPHILS 84.5 % (40-80); PLATELET COUNT 342 10x3/uL (130-400); RDW 13.4 % (11.5-14.5); WBC 13.3 10x3/uL (4.8-10.8)
[2019-04-25 06:52] LABS: ALBUMIN 2.7 g/dL (3.4-5.0); ANION GAP 5.3 mmol/L (8-16); BILIRUBIN - TOTAL 0.33 mg/dL (0.2-1.3); CALCIUM 10.2 mg/dL (8.5-10.1); CARBON DIOXIDE 34.1 mmol/L (21.0-32.0); CREATININE - SERUM 1.2 mg/dL (0.6-1.3); POTASSIUM - SERUM 5.4 mmol/L (3.5-5.1); PROTEIN - SERUM 6.1 g/dL (6.4-8.2)
--- NOTE | 2019-04-25 07:51 | NUR ---
REC'D IN BED AWAKE AND ALERT. RESP EVEN AND UNLABORED WITH NO DISTRESS NOTED. CAN EXPRESS NEEDS AND WANTS. NO C/O NOTED OR VOICED AT THIS TIME. UP AB [place] WITH SLOW AND STEADY GAIT. ASSESSMENT COMPLETED. C/L IN REACH AT BEDSIDE.
[2019-04-25 09:05] VITALS: BP 102/46
--- NOTE | 2019-04-25 09:42 | NUR ---
C/P GENERALIZED PAIN RATING 8/10 ON PAIN SCALE WAS MEDICATED WITH OXY PER ORDERS. C/L IN REACH AT BEDSIDE.
--- NOTE | 2019-04-25 09:51 | MORECARE ---
CASE MANAGEMENT DISCHARGE SUMMARY PATIENT: MELANIE DAMON UNIT: [id number] ADM DATE: 04/22/19 AGE: 78 : 42 SEX: F ROOM/BED: D.2203 AUTHOR: RASHIDA MITCHELL PHYSICIAN: REFERRING PHYSICIAN: GLENNY MERIDA MD DATE OF SERVICE: 04/25/19 Discharge Plan Patient Name: MELANIE DAMON Facility: [facility]:[place] : 1940 Planned Disposition: Inpatient Rehab Anticipated Discharge Date: Discharge Date: Expected LOS: Initial Reviewer: [id number] Initial Review Date: 04/22/2019 Generated: 04/25/19 10:50 am Comments DCP- Discharge Planning Updated by [email or web address]: Kristy Casey on 04/25/19 8:[address] RECEIVED A CALL FROM CAMILLA AT [facility], SHE HAS BEEN ACCEPTED TO INPATIENT REHAB THERE. JUST NEED TO MAKE SURE THAT SHE HAS HAD A BM. CM TO FOLLOW AND ASSIST NEEDED DCP- Discharge Planning Updated by [email or web address]: Kristy Casey on 04/24/19 1:[address] Patient Name: MELANIE DAOMN Admission Status: ER Accout number: [id number] Admission Date: 04-22-2019 : 1940 Admission Diagnosis: Attending: GLENNY DIAZ Current LOS: 2 Anticipated DC Date: Planned Disposition: Inpatient Rehab Primary Insurance: MEDICARE A & B Discharge Planning Comments: CM met with patient to complete initial dc planning assessment. CM educated patient on the CM role and verbal consent given by patient to complete assessment. Patient lives at home by herself where she is independent with her care. At discharge patient would like to go to inpatient rehab at [facility] and feels this is a safe discharge. CM discussed availability of home health, rehab services, and medical equipment. She has home o2, with portibility walker, nebulizer, and trilolgy. I have sent the referral to Camilla at [facility]. FEDERICO obtained and IMM served and explained. Patient denied known discharge needs at this time. CM will continue to follow and will assist as needed with dc plans/needs. Photo Printer: Kristy Casey DCPIA - Discharge Planning Initial Assessment Updated by [email or web address]: Kristy Casey on 04/24/19 1:56 pm * Is the patient Alert and Oriented? Yes * How many steps to enter\exit or inside your home? RAMP/0 * PCP DR BELL * Pharmacy [facility] * Preadmission Environment Home Alone * ADLs Partial Dependent * Partial ADLs (Assistance needed) Ambulation * Equipment Nebulizer Other Oxygen Walker * Other Equipment TRILOGY * List name and contact numbers for known caregivers / representatives who currently or will assist patient after discharge: FERNANDO ONEIL [phone] * Additional services required to return to the preadmission environment? Yes * Can the patient safely return to the preadmission environment? No * Has this patient been hospitalized within the prior 30 days at any hospital? Yes Coverage Notice Reviewer: [id number] Twyla Casey Notice Issued Date-Time: 04/24/2019 13:45 Notice Type: IM Discharge Notice Notice Delivered To: Patient Relationship to Patient: Electronic Device Monitor Name: Delivery Method: HAND - Hand Delivered Days: Prior Verbal Notification: Recipient Understood Notice: Yes Recipient Signature: Yes Med Rec Note Co-signed by Attending: Coverage Notice Comment: Reviewer: [id number] Twyla Casey Notice Issued Date-Time: 04/24/2019 13:45 Notice Type: Patient Choice Letter Notice Delivered To: Patient Relationship to Patient: Electronic Device Monitor Name: Delivery Method: HAND - Hand Delivered Days: Prior Verbal Notification: Recipient Understood Notice: Yes Recipient Signature: Yes Med Rec Note Co-signed by Attending: Coverage Notice Comment: [facility] Last DP export: 04/24/19 1:12 Patient Name: MELANIE DAMON Page [phone] at 0951 All edits/amendments must be made on the electronic document DICTATION DATE: 04/25/19949 LOAN CONSULTANT: KAY 04/25/19949 RPT#: [id number] DC DATE: STATUS: ADM IN [facility] [address] [place] [address] END OF REPORT
[2019-04-25 12:50] VITALS: BP 133/66
--- NOTE | 2019-04-25 13:45 | NUR ---
SOAP MADHURI ENEMA GIVEN AT THIS TIME. TOLERATED WELL.
--- NOTE | 2019-04-25 14:04 | NUR ---
OT NOTE: BED MOB WITH SBA; TRANSFER FROM BED TO TOILET WITH CGA; IN ROOM AMBULATION WITH USE OF RW AND MIN ASSIST; SIMPLE GROOMING TASKS WITH SET UP; ABLE TO MARGOT SHOES WITH MIN ASSIST; TOILETING WITH MIN ASSIST; DYNAMIC SITTING BALANCE IS GOOD; STANDING BALANCE FAIR. DELFIN HASTINGS, OTR/L
[2019-04-25 16:38] VITALS: BP 131/83
--- NOTE | 2019-04-25 18:12 | NUR ---
OT NOTE: PT COMPLETED BED MOB TASKS WITH SBA. PT COMPLETED EOB SITTING BALANCE WITH SBA. PT COMPLETED UE AROM AX. THANK YOU,NORA HATCH
--- NOTE | 2019-04-25 18:37 | NUR ---
I have reviewed this patient and I concur with the Shift Assessment completed by the Licensed Practical Nurse today this shift.
[2019-04-25 19:30] VITALS: BP 164/70
--- NOTE | 2019-04-25 20:00 | NUR ---
ALERT SITTING UP IN BED, REPORTS BOWELS HAVE FINALLY STARTED MOVING TODAY, CONTINUES TO C/O GENERALIZED PAIN, SEE SHIFT ASSESSMENT, CALL LIGHT IN REACH
[2019-04-26 00:59] VITALS: BP 171/81
[2019-04-26 05:34] VITALS: BP 139/66
[2019-04-26 06:49] LABS: BASOPHILS 0 % (0-2); EOSINOPHILS 0 % (0-7); HEMOGLOBIN 11.4 g/dL (12-16); IMMATURE GRANULOCYTES 0.3 % (0-5); LYMPHOCYTES 10.4 % (15-50); MCH 28.9 pg (26.0-34.0); MCHC 30.8 g/dL (31.0-37.0); MCV 93.7 fL (80.0-100.0); NEUTROPHILS 83.3 % (40-80); PLATELET COUNT 331 10x3/uL (130-400); RBC 3.95 10x6/uL (4.00-5.40); WBC 11.1 10x3/uL (4.8-10.8)
[2019-04-26 07:06] LABS: ALBUMIN 2.6 g/dL (3.4-5.0); ANION GAP 7.6 mmol/L (8-16); BILIRUBIN - TOTAL 0.23 mg/dL (0.2-1.3); CALCIUM 10.7 mg/dL (8.5-10.1); CARBON DIOXIDE 33.3 mmol/L (21.0-32.0); POTASSIUM - SERUM 4.9 mmol/L (3.5-5.1); PROTEIN - SERUM 5.7 g/dL (6.4-8.2)
[2019-04-26 08:49] VITALS: BP 136/68
[2019-04-26] MEDS ORDERED: MIRALAX17 GM PO (09:20)
[2019-04-26] MEDS ORDERED: PREDNISONE10 MG PO (09:23)
[2019-04-26] MEDS ORDERED: MUCINEX DM ER1 EAC1 PO (09:25)
[2019-04-26] MEDS ORDERED: LEXAPRO10 MG PO (09:25)
[2019-04-26 12:46] VITALS: BP 164/68
--- NOTE | 2019-04-26 12:48 | MORECARE ---
CASE MANAGEMENT DISCHARGE SUMMARY PATIENT: MELANIE DAMON UNIT: [id number] ADM DATE: 04/22/19 AGE: 78 : 42 SEX: F ROOM/BED: D.2203 AUTHOR: STEPHENDOC PHYSICIAN: REFERRING PHYSICIAN: GLENNY MERIDA MD DATE OF SERVICE: 04/26/19 Discharge Plan Patient Name: MELANIE DAMON Facility: [facility]:[place] : 1940 Planned Disposition: Inpatient Rehab Anticipated Discharge Date: Discharge Date: Expected LOS: Initial Reviewer: [id number] Initial Review Date: 04/22/2019 Generated: 04/26/19 1:48 pm Comments DCP- Discharge Planning Updated by [email or web address]: Kristy Casey on 04/26/19 11:[address] Patient to be discharging today to [facility] inpatient [facility]. she will transport via ems DCP- Discharge Planning Updated by [id number]: Kristy Casey on 04/25/19 8:[address] RECEIVED A CALL FROM CAMILLA AT [facility], SHE HAS BEEN ACCEPTED TO INPATIENT REHAB THERE. JUST NEED TO MAKE SURE THAT SHE HAS HAD A BM. CM TO FOLLOW AND ASSIST NEEDED DCP- Discharge Planning Updated by [id number]: Kristy Casey on 04/24/19 1:[address] Patient Name: MELANIE DAMON Admission Status: ER Accout number: [id number] Admission Date: 04-22-2019 : 1940 Admission Diagnosis: Attending: GLENNY DIAZ Current LOS: 2 Anticipated DC Date: Planned Disposition: Inpatient Rehab Primary Insurance: MEDICARE A & B Discharge Planning Comments: CM met with patient to complete initial dc planning assessment. CM educated patient on the CM role and verbal consent given by patient to complete assessment. Patient lives at home by herself where she is independent with her care. At discharge patient would like to go to inpatient rehab at [facility] and feels this is a safe discharge. CM discussed availability of home health, rehab services, and medical equipment. She has home o2, with portibility walker, nebulizer, and trilolgy. I have sent the referral to Camilla at [facility]. FEDERICO obtained and IMM served and explained. Patient denied known discharge needs at this time. CM will continue to follow and will assist as needed with dc plans/needs. Medical Device: Kristy Casey DCPIA - Discharge Planning Initial Assessment Updated by [email or web address]: Kristy Casey on 04/24/19 1:56 pm * Is the patient Alert and Oriented? Yes * How many steps to enter\exit or inside your home? RAMP/0 * PCP DR BELL * Pharmacy [facility] * Preadmission Environment Home Alone * ADLs Partial Dependent * Partial ADLs (Assistance needed) Ambulation * Equipment Nebulizer Other Oxygen Walker * Other Equipment TRILOGY * List name and contact numbers for known caregivers / representatives who currently or will assist patient after discharge: FERNANDO ONEIL [phone] * Additional services required to return to the preadmission environment? Yes * Can the patient safely return to the preadmission environment? No * Has this patient been hospitalized within the prior 30 days at any hospital? Yes Coverage Notice Reviewer: [id number] Twyla Casey Notice Issued Date-Time: 04/24/2019 13:45 Notice Type: IM Discharge Notice Notice Delivered To: Patient Relationship to Patient: Cigar Head Pegger Name: Delivery Method: HAND - Hand Delivered Days: Prior Verbal Notification: Recipient Understood Notice: Yes Recipient Signature: Yes Med Rec Note Co-signed by Attending: Coverage Notice Comment: Reviewer: [id number] Casey Notice Issued Date-Time: 04/24/2019 13:45 Notice Type: Patient Choice Letter Notice Delivered To: Patient Relationship to Patient: Cigar Head Pegger Name: Delivery Method: HAND - Hand Delivered Days: Prior Verbal Notification: Recipient Understood Notice: Yes Recipient Signature: Yes Med Rec Note Co-signed by Attending: Coverage Notice Comment: [facility] Last DP export: 04/25/19 8:51 Patient Name: MELANIE DAMON Page [phone] at 1248 All edits/amendments must be made on the electronic document DICTATION DATE: 04/26/198 PATTERN WHEEL MAKER: KAY 04/26/19 1248 RPT#: [id number] DC DATE: STATUS: ADM IN [facility] [address] [place] [address] END OF REPORT
--- NOTE | 2019-04-26 13:11 | NUR ---
TAKEN FROM HOSPITAL PER STRETCHER AT 1245, PACKET FOR [facility] SENT ALONG
--- NOTE | 2019-04-26 13:18 | NUR ---
1200 report called to serina at rehab facility
--- NOTE | 2019-05-01 12:20 | MORECARE ---
CASE MANAGEMENT DISCHARGE SUMMARY PATIENT: MELANIE DAMON UNIT: [id number] ADM DATE: 04/22/19 AGE: 78 : 42 SEX: F ROOM/BED: D.2203 AUTHOR: STEPHEN,DOC PHYSICIAN: REFERRING PHYSICIAN: GLENNY MERIDA MD DATE OF SERVICE: 05/01/19 Discharge Plan Patient Name: MELANIE DAMON Facility: [facility]:[place] : 1940 Planned Disposition: Inpatient Rehab Anticipated Discharge Date: Discharge Date: 04/26/2019 Expected LOS: Initial Reviewer: [email or web address] Initial Review Date: 04/22/2019 Generated: 05/01/19 1:20 pm Comments DCP- Discharge Planning Updated by [email or web address]: Kristy Casey on 04/26/19 11:[address] Patient to be discharging today to [facility]. she will transport via ems DCP- Discharge Planning Updated by [email or web address]: Kristy aCsey on 04/25/19 8:[address] RECEIVED A CALL FROM CAMILLA AT [facility], SHE HAS BEEN ACCEPTED TO INPATIENT REHAB THERE. JUST NEED TO MAKE SURE THAT SHE HAS HAD A BM. CM TO FOLLOW AND ASSIST NEEDED DCP- Discharge Planning Updated by [email or web address]: Kristy Casey on 04/24/19 1:[address] Patient Name: MELANIE DAMON Admission Status: ER Accout number: [id number] Admission Date: 04-22-2019 : 1940 Admission Diagnosis: Attending: GLENNY DIAZ Current LOS: 2 Anticipated DC Date: Planned Disposition: Inpatient Rehab Primary Insurance: MEDICARE A & B Discharge Planning Comments: CM met with patient to complete initial dc planning assessment. CM educated patient on the CM role and verbal consent given by patient to complete assessment. Patient lives at home by herself where she is independent with her care. At discharge patient would like to go to inpatient rehab at [facility] and feels this is a safe discharge. CM discussed availability of home health, rehab services, and medical equipment. She has home o2, with portibility walker, nebulizer, and trilolgy. I have sent the referral to Camilla at [facility]. FEDERICO obtained and IMM served and explained. Patient denied known discharge needs at this time. CM will continue to follow and will assist as needed with dc plans/needs. Pattern Generator Operator: Kristy Casey DCPIA - Discharge Planning Initial Assessment Updated by [email or web address]: Kristy Casey on 04/24/19 1:56 pm * Is the patient Alert and Oriented? Yes * How many steps to enter\exit or inside your home? RAMP/0 * PCP DR BELL * Pharmacy [facility] * Preadmission Environment Home Alone * ADLs Partial Dependent * Partial ADLs (Assistance needed) Ambulation * Equipment Nebulizer Other Oxygen Walker * Other Equipment TRILOGY * List name and contact numbers for known caregivers / representatives who currently or will assist patient after discharge: FERNANDO ONEIL [phone] * Additional services required to return to the preadmission environment? Yes * Can the patient safely return to the preadmission environment? No * Has this patient been hospitalized within the prior 30 days at any hospital? Yes Coverage Notice Reviewer: [id number] - Kristy Casey Notice Issued Date-Time: 04/24/2019 13:45 Notice Type: IM Discharge Notice Notice Delivered To: Patient Relationship to Patient: Inspector Coated Fabrics Name: Delivery Method: HAND - Hand Delivered Days: Prior Verbal Notification: Recipient Understood Notice: Yes Recipient Signature: Yes Med Rec Note Co-signed by Attending: Coverage Notice Comment: Reviewer: [id number] Twyla Casey Notice Issued Date-Time: 04/24/2019 13:45 Notice Type: Patient Choice Letter Notice Delivered To: Patient Relationship to Patient: Inspector Coated Fabrics Name: Delivery Method: HAND - Hand Delivered Days: Prior Verbal Notification: Recipient Understood Notice: Yes Recipient Signature: Yes Med Rec Note Co-signed by Attending: Coverage Notice Comment: [facility] Last DP export: 04/26/19 11:48 Patient Name: MELANIE DAMON Page [phone] at 1220 All edits/amendments must be made on the electronic document DICTATION DATE: 05/01/19 1219 LADLE REPAIRER: KAY 05/01/19 1219 RPT#: [id number] DC DATE:04/26/19 STATUS: DIS IN [facility] [address] [place] [address] END OF REPORT
== END 2019-04-26 12:45 | DRG 189 ==
LOC: D.ER 19:42 → D.MS 21:05
PROVIDERS: Emergency Medicine; Internal Medicine Nephrology; Surgery; ADMIT Family Medicine; ATTEND Family Medicine
DX: J96.21 Acute and chronic respiratory failure with hypoxia (principal); R53.2 Functional quadriplegia; E43 Unspecified severe protein-calorie malnutrition; J44.1 Chronic obstructive pulmonary disease with (acute) exacerbation; D68.1 Hereditary factor XI deficiency; G72.81 Critical illness myopathy; Z68.1 Body mass index [BMI] 19.9 or less, adult; J44.0 Chronic obstructive pulmonary disease with (acute) lower respiratory infection; J96.22 Acute and chronic respiratory failure with hypercapnia; J20.9 Acute bronchitis, unspecified; G25.81 Restless legs syndrome; R79.89 Other specified abnormal findings of blood chemistry; D72.829 Elevated white blood cell count, unspecified